=== PATIENT | female | born 1975 | race Caucasian/White ===

== ENCOUNTER 2018-04-14 11:58 | Emergency (ER) | payer MEDICAID ==
[~2018-04-14] VITALS: Wt 83.1 kg
[2018-04-14 11:59] VITALS: BP 155/87; PULSE 87; RESP 18
[2018-04-14] MEDS ORDERED: ACETAMINOPHEN 325 MG TAB PO ONE (13:30)
[2018-04-14] MEDS ORDERED: FIORICET PO (14:13)
--- NOTE | 2018-04-14 14:16 | ERD ---
ER Documentation Chief Complaint Chief Complaint HERNANDEZ X 2 WEEKS HPI This 43 female presents with headache for the last 2 weeks. It is migratory right left front and back. She has a history of migraines. She was prescribed ibuprofen by primary doctor without relief. She denies visual changes, vomiting, weakness, deficits, bowel or bladder incontinence. She has an additional complaint of paresthesias in the left side of her face sensation sensation of left eye closing although is able to open. ROS All systems reviewed and are negative except as per history of present illness. Medications Home Meds Active Scripts Acetamin/Butalbital/Caffeine* (Fioricet*) [id number] Tab, 1 TAB PO Q6H PRN for PAIN, #15 TAB Prov:VIRGINIA FRANCE MD 04/14/18 Allergies Allergies: Coded Allergies: No Known Allergy (Unverified , 11/28/13) PMhx/Soc Hx Miscellaneous Medical Probl: Yes (Epigastric pain, Chrionic knee pain) Hx Alcohol Use: No Hx Substance Use: No Hx Tobacco Use: No Smoking Status: Never smoker FmHx Family History: No diabetes, No coronary disease, No other Physical Exam Vitals Vital Signs Date Temp Pulse Resp B/P (MAP) Pulse Ox O2 O2 Flow FiO2 Time Delivery Rate 04/14/18 98.6 87 18 155/87 99 11:59 (109) Physical Exam Const: No acute distress Head: Atraumatic Eyes: Normal Conjunctiva ENT: Normal External Ears, Nose and Mouth. Neck: Full range of motion. No meningismus. Resp: Clear to auscultation bilaterally Cardio: Regular rate and rhythm, no murmurs Abd: Soft, non tender, non distended. Normal bowel sounds Skin: No petechiae or rashes Back: No midline or flank tenderness Ext: No cyanosis, or edema Neur: Awake and alert. No appreciable focal neurologic deficits. Cranial nerves II through XII grossly intact. Negative Romberg and no pronator drift. Psych: Normal Mood and Affect Results 24 hrs Laboratory Tests Test 04/14/18 13:19 04/14/18 13:21 Bedside Urine pH (LAB) 6.0 Bedside Urine Protein (LAB) Negative Bedside Urine Glucose (UA) Negative Bedside Urine Ketones (LAB) Negative Bedside Urine Blood 1+ Bedside Urine Nitrite (LAB) Negative Bedside Urine Leukocyte Esterase (L 1+ POC Beta HCG, Qualitative NEGATIVE Current Medications Medications Dose Sig/Yusuf Start Time Status Last (Trade) Ordered Route PRN Stop Time Admin Dose Reason Admin 650 mg ONCE ONCE 04/14/18 DC 04/14/18 Acetaminophen PO 13:30 13:13 (Tylenol 04/14/18 13:31 Tab) Procedures/MDM CT brain shows old findings of cystic or psychosis otherwise no acute findings. Patient was given Tylenol for pain. Patient presents with migratory headache without findings of mass-effect, bleeding, neoplasm, neurologic deficit, signs of meningitis. Doubt subarachnoid. She is advised to follow-up with primary doctor for further evaluation. She will be treated with Fioricet, primary care follow-up and return precautions. The patient was stable with no new complaints during the ER course. Clinically, there is no current evidence to suggest meningitis, sepsis, acute abdomen, pneumonia, stroke, acute coronary syndrome, pulmonary embolism, aortic dissection or any other emergent condition appearing to require further evaluation or hospitalization. Patient counseled regarding my diagnostic impression and care plan. Prior to discharge all questions answered. Pt agrees with treatment plan and understands strict return precautions. Pt is instructed to follow up with primary care provider within 24- 48 hours. Precautionary instructions provided including instructions to return to the ER if not improving or for any worsening or changing symptoms or concerns. Departure Diagnosis: Primary Impression: Headache Headache type: unspecified Headache chronicity pattern: unspecified pattern Intractability: not intractable Qualified Codes: R51 - Headache Condition: Stable Patient Instructions: Headache, Unspecified Referrals: NO PRIMARY,CARE PHYSICIAN (PCP) Additional Instructions: CT NORMAL. Examines normal hoy. Cheque otro vez con hook doctor primario en el proximo leyva or regresa para mas o nueva simptomas. VIRGINIA FRANCE MD Apr 14, 2018 14:16
== END 2018-04-14 14:24 | disposition home or self-care (01) ==
LOC: FTE 11:58
DX: R51 Headache (principal)
CPT/HCPCS: 70450; 81003; 81025; Z7610